=== PATIENT | female | born 1995 | race Caucasian/White ===

== ENCOUNTER 2020-05-27 19:36 | Emergency (ER) | payer SELFPAY ==
[2020-05-27 20:49] LABS: Urine Blood NEGATIVE (NEG); Urine Glucose NEGATIVE (NEG); Urine Protein NEGATIVE (NEG); Urine Specific Gravity 1.025 (1.005-1.030)
--- NOTE | 2020-05-27 20:53 | ER ---
Nurse's Notes [facility] Name: Becky Landrum Age: 25 yrs Sex: Female : 1995 Arrival Date: 05/27/2020 Time: 19:40 Bed 12 Private MD: Diagnosis: Low back pain Presentation: 05/27 19:58 Chief complaint: Patient states: Pt reports she has been having low back pain for the ea past week. Pt reports she took a test and it was positive. Pt reports she may be 4 month . Reports her last period was May 08 but it was very light. Coronavirus screen: Proceed with normal triage. Patient was placed back in the lobby due to no available rooms at this time. Patient was instructed to always wear their mask and to isolate themselves as much as possible from others in the lobby. Ebola Screen: No symptoms or risks identified at this time. Initial Sepsis Screen: Does the patient meet any 2 criteria? No. Patient's initial sepsis screen is negative. Does the patient have a suspected source of infection? No. Patient's initial sepsis screen is negative. Risk Assessment: Do you want to hurt yourself or someone else? Patient reports no desire to harm self or others. Onset of symptoms was May 27, 2020. 19:58 Method Of Arrival: Ambulatory ea 19:58 Acuity: KYE 4 ea Triage Assessment: 20:02 General: Appears in no apparent distress. Behavior is appropriate for age. Pain: ea Complains of pain in low back area. 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 - Social history:: Smoking status: Reported history of juuling and/or vaping. Screenin:01 Abuse screen: Denies threats or abuse. Nutritional screening: No deficits noted. ea Tuberculosis screening: No symptoms or risk factors identified. Fall Risk None identified. Assessment: 20:40 General: Appears in no apparent distress. well groomed, well developed, well nourished, sg Behavior is calm, cooperative, appropriate for age. Pain: Complains of pain in low back area. Neuro: Level of Consciousness is awake, alert, obeys commands, Oriented to person, place, time, situation. Cardiovascular: Patient's skin is warm and dry. Chest pain is denied. Respiratory: Airway is patent Respiratory effort is even, unlabored. GI: Abdomen is round non-distended, Reports normal bowel habits, tolerance of fluids, tolerance of food. : No signs and/or symptoms were reported regarding the genitourinary system. EENT: No signs and/or symptoms were reported regarding the EENT system. Derm: Skin is pink, warm \T\ dry. Musculoskeletal: Circulation, motion, and sensation intact. Range of motion: intact in all extremities. Vital Signs: 19:58 BP 135 / 82; Pulse 98; Resp 18; Temp 98.5; Pulse Ox 98% on R/A; Weight 82.55 kg; Height ea 5 ft. 2 in. (157.48 cm); 21:00 BP 116 / 66; Pulse 77; Resp 18 S; Temp 98.5; Pulse Ox 100% on R/A; sg 19:58 Body Mass Index 33.29 (82.55 kg, 157.48 cm) ea ED Course: 19:40 Patient arrived in ED. es 20:00 Triage completed. ea 20:00 Arm band placed on. sg 20:02 Vidhya [place] FNP-C is [facility]. snw 20:02 Sohan Doshi MD is Attending Physician. snw 20:18 Patient has correct armband on for positive identification. Bed in low position. Call sg light in reach. Pulse ox on. NIBP on. 20:50 No provider procedures requiring assistance completed. Patient did not have IV access sg during this emergency room visit. Administered Medications: No medications were administered Outcome: 20:53 Discharge ordered by . snw 21:03 Discharged to home ambulatory. sg 21:03 Condition: good 21:03 Discharge instructions given to patient, Instructed on discharge instructions, follow up and referral plans. safety practices, Demonstrated understanding of instructions, follow-up care. 21:18 Patient left the ED. ea Signatures: Zay Kay RN RN Vidhya Koo FNP-C FNP-Csnw Carmen Jimenez Elena, RN RN ea
--- NOTE | 2020-05-27 20:53 | EDPHYS ---
Physician Documentation [facility] Name: Becky Landrum Age: 25 yrs Sex: Female : 1995 Arrival Date: 05/27/2020 Time: 19:40 Bed 12 Private MD: ED Physician Sohan Doshi HPI: 05/27 20:54 This 25 yrs old Female presents to ER via Ambulatory with complaints of Low snw Back Pain. 20:54 The patient presents with pain that is acute, with no known mechanism of injury. The snw symptoms are located in the low back. The pain does not radiate. The problem was sustained pt states + test on Saturday. UPT in ED negative. Onset: The symptoms/episode began/occurred gradually. Associated signs and symptoms: The patient has no apparent associated signs or symptoms. Severity of symptoms: At their worst the symptoms were mild. It is unknown whether or not the patient has had similar symptoms in the past. It is unknown whether or not the patient has recently seen a physician. 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 - Social history:: Smoking status: Reported history of juuling and/or vaping. ROS: 20:54 Constitutional: Negative for fever, chills, and weight loss, Eyes: Negative for injury, snw pain, redness, and discharge, ENT: Negative for injury, pain, and discharge, Neck: Negative for injury, pain, and swelling, Cardiovascular: Negative for chest pain, palpitations, and edema, Respiratory: Negative for shortness of breath, cough, wheezing, and pleuritic chest pain, Abdomen/GI: Negative for abdominal pain, nausea, vomiting, diarrhea, and constipation, : Negative for injury, bleeding, discharge, and swelling, MS/Extremity: Negative for injury and deformity, Skin: Negative for injury, rash, and discoloration, Neuro: Negative for headache, weakness, numbness, tingling, and seizure, Psych: Negative for depression, anxiety, suicide ideation, homicidal ideation, and hallucinations. 20:54 Back: Positive for pain at rest, of the low back area. Exam: 20:52 Constitutional: This is a well developed, well nourished patient who is awake, alert, snw and in no acute distress. Head/Face: Normocephalic, atraumatic. Eyes: Pupils equal round and reactive to light, extra-ocular motions intact. Lids and lashes normal. Conjunctiva and sclera are non-icteric and not injected. Cornea within normal limits. Periorbital areas with no swelling, redness, or edema. ENT: Nares patent. No nasal discharge, no septal abnormalities noted. Tympanic membranes are normal and external auditory canals are clear. Oropharynx with no redness, swelling, or masses, exudates, or evidence of obstruction, uvula midline. Mucous membranes moist. Neck: Trachea midline, no thyromegaly or masses palpated, and no cervical lymphadenopathy. Supple, full range of motion without nuchal rigidity, or vertebral point tenderness. No Meningismus. Chest/axilla: Normal chest wall appearance and motion. Nontender with no deformity. No lesions are appreciated. Cardiovascular: Regular rate and rhythm with a normal S1 and S2. No gallops, murmurs, or rubs. Normal PMI, no JVD. No pulse deficits. Respiratory: Lungs have equal breath sounds bilaterally, clear to auscultation and percussion. No rales, rhonchi or wheezes noted. No increased work of breathing, no retractions or nasal flaring. Abdomen/GI: Soft, non-tender, with normal bowel sounds. No distension or tympany. No guarding or rebound. No evidence of tenderness throughout. Skin: Warm, dry with normal turgor. Normal color with no rashes, no lesions, and no evidence of cellulitis. MS/ Extremity: Pulses equal, no cyanosis. Neurovascular intact. Full, normal range of motion. Neuro: Awake and alert, GCS 15, oriented to person, place, time, and situation. Cranial nerves II-XII grossly intact. Motor strength 5/5 in all extremities. Sensory grossly intact. Cerebellar exam normal. Normal gait. Psych: Awake, alert, with orientation to person, place and time. Behavior, mood, and affect are within normal limits. 20:52 Back: pain, that is moderate, of the low back area, normal spinal alignment noted, muscle spasm, is not present. Vital Signs: 19:58 BP 135 / 82; Pulse 98; Resp 18; Temp 98.5; Pulse Ox 98% on R/A; Weight 82.55 kg; Height ea 5 ft. 2 in. (157.48 cm); 21:00 BP 116 / 66; Pulse 77; Resp 18 S; Temp 98.5; Pulse Ox 100% on R/A; sg 19:58 Body Mass Index 33.29 (82.55 kg, 157.48 cm) ea MDM: 20:46 Patient medically screened. snw 20:53 Data reviewed: vital signs, nurses notes. Data interpreted: Pulse oximetry: on room air snw is 98 %. Interpretation: normal. Counseling: I had a detailed discussion with the patient and/or guardian regarding: the historical points, exam findings, and any diagnostic results supporting the discharge/admit diagnosis, lab results, the need for outpatient follow up, to return to the emergency department if symptoms worsen or persist or if there are any questions or concerns that arise at home. Special discussion: Based on the history and exam findings, there is no indication for further emergent testing or inpatient evaluation. I discussed with the patient/guardian the need to see the OB Gyne specialist for further evaluation of the symptoms. I discussed with the patient/guardian the need to see the primary care provider for further evaluation of the symptoms. 05/27 19:57 Order name: Urine Microscopic Only snw 05/27 20:06 Order name: Urine Microscopic Only EDMS 05/27 19:57 Order name: Urine Test (obtain specimen); Complete Time: 20:20 snw 05/27 19:57 Order name: Urine Dipstick-Ancillary (obtain specimen); Complete Time: 20:20 snw 05/27 20:20 Order name: Urine Dipstick--Ancillary (enter results); Complete Time: 20:50 ar5 05/27 20:20 Order name: Urine --Ancillary (enter results); Complete Time: 20:50 ar5 Administered Medications: No medications were administered Disposition: 05/28 02:12 Co-signature as Attending Physician, Sohan Doshi MD. [email or web address] Disposition: 05/27/20 20:53 Discharged to Home. Impression: Low back pain. - Condition is Stable. - Medication Reconciliation Form, Thank You Letter, Antibiotic Education, Prescription Opioid Use form. - Follow up: Emergency Department; When: As needed; Reason: Worsening of condition. Follow up: Private Physician; When: 2 - 3 days; Reason: Recheck today's complaints, Continuance of care, Re-evaluation by your physician. Signatures: Dispatcher [employer] EDVidhya Diaz FNP-C BLIND HOOKER-Csnw Ama Grimes RN RN Sohan Crews MD MD [email or web address] Corrections: (The following items were deleted from the chart) 05/27 21:18 20:53 05/27/2020 20:53 Discharged to Home. Impression: Low back pain. Condition is ea Stable. Forms are Medication Reconciliation Form, Thank You Letter, Antibiotic Education, Prescription Opioid Use. Follow up: Emergency Department; When: As needed; Reason: Worsening of condition. Follow up: Private Physician; When: 2 - 3 days; Reason: Recheck today's complaints, Continuance of care, Re-evaluation by your physician. snw
[2020-05-27 21:22] VITALS: BP 135/82; TEMP 98.5; O2SAT 98
[2020-05-27 21:30] LABS: Urine Amorphous Sediment 4+ /HPF (NONE SEEN); Urine Bacteria <20 /HPF (<20); Urine Culture Reflex Order NOT NEEDED; Urine RBC <5 /HPF (NONE SEEN)
== END 2020-05-27 21:18 | disposition home or self-care (01) ==
LOC: ER 19:36
DX: M54.5 Low back pain (principal); F99 Mental disorder, not otherwise specified; Z72.0 Tobacco use; Z88.1 Allergy status to other antibiotic agents; Z88.2 Allergy status to sulfonamides; Z88.5 Allergy status to narcotic agent
CPT/HCPCS: 81003; 81015; 81025; 99283

== ENCOUNTER 2021-03-15 10:18 | Emergency (ER) | payer OTHER, SELFPAY ==
--- OUTSIDE RECORDS SUMMARY | 2021-03-15 10:20 | XMS REPORT | Continuity of Care Document ---
:1995 Author Organization [facility] [place] t Address [address] [place] [address] Care Team Providers Name Role Phone Faisal Tierney DO Attending Clinician Karina PUENTE Attending Clinician Problems This patient has no known problems. Allergies, Adverse Reactions, Alerts This patient has no known allergies or adverse reactions. Medications This patient has no known medications. Procedures This patient has no known procedures. Encounters Start End Encounter Admission Attending Care Care Encounter Source Date/Time Date/Time Type Type Clinicians Facility Department ID 2021-02-14 2021-02-14 Outpatient [facility] [id number] [facility] 00:00[facility]00 [facility]00:00 [facility] 2021-02-08 2021-02-08 Outpatient [facility] [id number] [facility] 2021-01-25 2021-01-25 Outpatient [facility] [id number] [facility] 2021-01-24 2021-01-24 Patient FIDENCIO Tierney [id number] 00:00:00 00:00:00 Outreach [facility] [id number] [facility] [id number] [place] [id number] 2020-12-22 2020-12-22 Outpatient [facility] [id number] [facility] 2020-10-19 2020-10-19 Outpatient [facility] [id number] [facility] 2020-09-08 2020-09-08 Outpatient [facility] [id number] [facility] 2020-09-01 2020-09-01 Office FIDENCIO Collins [id number] 11:07:13 12:17:38 Visit Anjelica Hudson [id number] [place] [id number] Jaqueline [id number] [address] 2020-08-08 2020-08-08 Outpatient [facility] [id number] [facility] Results This patient has no known results.
[2021-03-15 11:36] LABS: Urine Blood 3+ (Negative); Urine Glucose Negative (Negative); Urine Protein 2+ (Negative); Urine Specific Gravity >=1.030 (1.005-1.030)
[2021-03-15 11:37] LABS: Absolute Lymphocytes (CBC) 2.1 K/uL (0.7-4.9); Basophils % 0.6 % (0-1.3); Hematocrit 36.1 % (36.0-45.0); Lymphocytes % 22.4 % (15.3-44.8); MPV 9.6 fL (7.6-11.3); RBC Red Blood Cell Count 4.32 M/uL (3.86-4.86)
[2021-03-15 11:47] LABS: Urine Specific Gravity/Preg >1.030 (1.005-1.030)
[2021-03-15] MEDS ORDERED: FENTANYL CITR 100 MCG/2 ML ONE (11:49)
[2021-03-15] MEDS ORDERED: ONDANSETRON 4 MG/2 ML VIAL ONE (11:50)
[2021-03-15 12:13] LABS: Calcium Oxalate Crystals- Ur PRESENT (NONE SEEN); Urine Bacteria >50 /HPF (<20); Urine Mucus MOD /HPF (NONE SEEN)
[2021-03-15 12:13] LABS: BUN Blood Urea Nitrogen 9 mg/dL (7-18); Bicarbonate 24 mmol/L (21-32); Glucose Level 139 mg/dL (74-106); HCG, Quantitative 5694 mIU/mL (1-3); Potassium 3.4 mmol/L (3.5-5.1); Sodium Level 138 mmol/L (136-145)
--- NOTE | 2021-03-15 13:13 | RAD REPORT ---
EXAM DESCRIPTION: US - Transvaginal OB - 03/15/2021 1:02 pm CLINICAL HISTORY: with abdominal pain COMPARISON: None. FINDINGS: The uterus 8 x 4 x 5 centimeters. A gestational sac is present within the endometrium denise suring 1.1 centimeter. A yolk sac is seen. A pole is not demonstrated. Ovaries are normal in size and echotexture.. The right and left adnexa unremarkable. No significant free fluid IMPRESSION: These findings may indicate a viable intrauterine in which the pole is n ot seen secondary to the early gestation. The estimated gestational age would be 5 weeks 6 days. It i s recommended that the patient have followup ultrasound in 1 week for re-evaluation
--- NOTE | 2021-03-15 13:32 | ER ---
Nurse's Notes [facility] Name: Becky Landrum Age: 25 yrs Sex: Female : 1995 Arrival Date: 03/15/2021 Time: 10:23 Bed 13 Private MD: Cyndi Gonzalez Diagnosis: Acute cystitis with hematuria;Intrauterine Presentation: 03/15 10:25 Chief complaint: LLQ pain upon waking today. She tried to make herself vomit and saw hb blood clots in her emesis. Home test positive yesterday. LMP . Coronavirus screen: At this time, the client does not indicate any symptoms associated with coronavirus-19. Ebola Screen: No symptoms or risks identified at this time. Initial Sepsis Screen: Does the patient meet any 2 criteria? No. Patient's initial sepsis screen is negative. Does the patient have a suspected source of infection? No. Patient's initial sepsis screen is negative. Risk Assessment: Do you want to hurt yourself or someone else? Patient reports no desire to harm self or others. Onset of symptoms was March 15, 2021. 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 - Social history:: Smoking status: Patient denies any tobacco usage or history of. Screenin:42 Abuse screen: Denies threats or abuse. Nutritional screening: No deficits noted. vg1 Tuberculosis screening: No symptoms or risk factors identified. Fall Risk No fall in past 12 months (0 pts). No secondary diagnosis (0 pts). IV access (20 points). Ambulatory Aid- None/Bed Rest/Nurse Assist (0 pts). Gait- Normal/Bed Rest/Wheelchair (0 pts) Mental Status- Oriented to own ability (0 pts). Total Villegas Fall Scale indicates No Risk (0-24 pts). Assessment: 11:30 General: Appears in no apparent distress. uncomfortable, Behavior is cooperative, vg1 crying. Pain: Complains of pain in left lower quadrant Pain currently is 9 out of 10 on a pain scale. Quality of pain is described as stabbing, Pain began 2 hours ago. Neuro: Level of Consciousness is awake, alert, obeys commands, Oriented to person, place, time, situation. Cardiovascular: Patient's skin is warm and dry. Respiratory: Airway is patent Respiratory effort is even, unlabored. GI: Bowel sounds present X 4 quads. Abdomen is tender to palpation in left lower quadrant. : No signs and/or symptoms were reported regarding the genitourinary system. EENT: Derm: Skin is intact, is healthy with good turgor. Musculoskeletal: Circulation, motion, and sensation intact. 12:14 Reassessment: pt transported to US. tr6 13:20 Reassessment: Patient appears in no apparent distress at this time. Patient and/or vg1 family updated on plan of care and expected duration. Pain level reassessed. Patient is alert, oriented x 3, equal unlabored respirations, skin warm/dry/pink. Patient denies pain at this time. Patient states feeling better. Vital Signs: 10:25 BP 117 / 70; Pulse 116; Resp 20; Temp 97.5; Pulse Ox 100% on R/A; Pain 10/10; hb 11:41 BP 125 / 78; Pulse 105; Resp 18; Pulse Ox 98% on R/A; vg1 13:20 BP 120 / 91; Pulse 89; Resp 16; Pulse Ox 100% on R/A; vg1 ED Course: 10:23 Patient arrived in ED. mr 10:23 Cyndi Gonzalez MD is Private Physician. mr 10:27 Triage completed. hb 10:28 Arm band placed on. hb 10:34 Geoff Arndt PA is PHCP. jr8 10:34 David Diaz MD is Attending Physician. jr8 11:27 Clarissa Oliver, ANN is Primary Nurse. tr6 11:27 Inserted saline lock: 20 gauge in right forearm, using aseptic technique. Blood tr6 collected. 11:42 Patient has correct armband on for positive identification. Bed in low position. Call vg1 light in reach. Adult w/ patient. 11:43 Primary Nurse role handed off by Clarissa Oliver, RN vg1 11:43 Bethany Lazo, RN is Primary Nurse. vg1 12:16 Patient taken to ultrasound. via wheelchair. vg1 13:02 US Transvaginal Ob In Process Unspecified. EDTX 13:29 Cyndi Gonzalez MD is Referral Physician. jr8 13:44 No provider procedures requiring assistance completed. IV discontinued, intact, em bleeding controlled, No redness/swelling at site. Pressure dressing applied. Administered Medications: 11:38 Drug: fentaNYL (PF) 50 mcg Route: IVP; Site: right forearm; tr6 13:19 Follow up: Response: No adverse reaction; Pain is decreased vg1 11:38 Drug: Zofran (Ondansetron) 4 mg Route: IVP; Site: right forearm; tr6 13:19 Follow up: Response: No adverse reaction vg1 13:29 Drug: Rocephin (cefTRIAXone) 1 grams Route: IV; Rate: calculated rate; Site: right vg1 wrist; 13:45 Follow up: Response: No adverse reaction; IV Status: Completed infusion; IV Intake: 10mlem Intake: 13:45 IV: 10ml; Total: 10ml. em Outcome: 13:31 Discharge ordered by MD. jr8 13:44 Discharged to home ambulatory, with family. em 13:44 Condition: stable 13:44 Discharge instructions given to patient, Instructed on discharge instructions, follow up and referral plans. medication usage, Demonstrated understanding of instructions, follow-up care, medications, Prescriptions given X 2. 13:45 Patient left the ED. em Signatures: Dispatcher [facility] Tori Alvarez Edgar, RN RN em Geoff Arndt PA PA jr8 Cydney Hurtado RN RN hb Garcia, Victoria, ANN JUAREZ vg1 Clarissa Oliver, ANN JUAREZ tr6
--- NOTE | 2021-03-15 13:33 | EDPHYS ---
Physician Documentation [facility] Name: Becky Landrum Age: 25 yrs Sex: Female : 1995 Arrival Date: 03/15/2021 Time: 10:23 Bed 13 Private MD: Cyndi Gonzalez ED Physician David Diaz HPI: 03/15 11:44 This 25 yrs old Female presents to ER via Ambulatory with complaints of jr8 Abdominal Pain. 11:44 The patient presents with abdominal pain in the left lower quadrant. Onset: The jr8 symptoms/episode began/occurred acutely, today. The symptoms do not radiate. Associated signs and symptoms: Pertinent positives: nausea. The symptoms are described as stabbing. Modifying factors: The symptoms are alleviated by nothing, the symptoms are aggravated by nothing. Severity of pain: At its worst the pain was moderate in the emergency department the pain is unchanged. The patient has not experienced similar symptoms in the past. The patient has not recently seen a physician. Patient stated that she has been cramping for the past few weeks. Stated that she took a test and was positive. Today pain increased substantially and now was having nausea. Could not vomit or have bowel movement. Pickett like she wanted to have bowel movement . 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 - Social history:: Smoking status: Patient denies any tobacco usage or history of. ROS: 11:44 Eyes: Negative for injury, pain, redness, and discharge, ENT: Negative for injury, jr8 pain, and discharge, Neck: Negative for injury, pain, and swelling, Cardiovascular: Negative for chest pain, palpitations, and edema, Respiratory: Negative for shortness of breath, cough, wheezing, and pleuritic chest pain, Back: Negative for injury and pain, MS/Extremity: Negative for injury and deformity, Skin: Negative for injury, rash, and discoloration, Neuro: Negative for headache, weakness, numbness, tingling, and seizure. 11:44 Abdomen/GI: Positive for abdominal pain, nausea. 11:44 : Positive for menstrual abnormality. Exam: 11:44 Cardiovascular: Regular rate and rhythm with a normal S1 and S2. No gallops, murmurs, jr8 or rubs. Normal PMI, no JVD. No pulse deficits. Respiratory: Lungs have equal breath sounds bilaterally, clear to auscultation and percussion. No rales, rhonchi or wheezes noted. No increased work of breathing, no retractions or nasal flaring. Back: No spinal tenderness. No costovertebral tenderness. Full range of motion. Skin: Warm, dry with normal turgor. Normal color with no rashes, no lesions, and no evidence of cellulitis. MS/ Extremity: Pulses equal, no cyanosis. Neurovascular intact. Full, normal range of motion. Neuro: Awake and alert, GCS 15, oriented to person, place, time, and situation. Cranial nerves II-XII grossly intact. Motor strength 5/5 in all extremities. Sensory grossly intact. 11:44 Constitutional: The patient appears alert, awake, uncomfortable. 11:44 Abdomen/GI: Inspection: obese Bowel sounds: active, all quadrants, Palpation: soft, in all quadrants, moderate abdominal tenderness, in the left lower quadrant, mass, is not appreciated, rebound tenderness, is not appreciated, voluntary guarding, is not appreciated, involuntary guarding, is not appreciated, no appreciated organomegaly, Indicators: McBurney's point is not tender, Frazier's sign Rovsing's sign is negative, Liver: tenderness, is not appreciated. Vital Signs: 10:25 BP 117 / 70; Pulse 116; Resp 20; Temp 97.5; Pulse Ox 100% on R/A; Pain 10/10; hb 11:41 BP 125 / 78; Pulse 105; Resp 18; Pulse Ox 98% on R/A; vg1 13:20 BP 120 / 91; Pulse 89; Resp 16; Pulse Ox 100% on R/A; vg1 MDM: 10:34 Patient medically screened. jr8 13:20 Data reviewed: vital signs, nurses notes, lab test result(s), radiologic studies, jr8 ultrasound. Data interpreted: Pulse oximetry: on room air is 100 %. Interpretation: normal. Counseling: I had a detailed discussion with the patient and/or guardian regarding: the historical points, exam findings, and any diagnostic results supporting the discharge/admit diagnosis, lab results, radiology results, the need for outpatient follow up, a family practitioner, an OB/Gyne specialist, to return to the emergency department if symptoms worsen or persist or if there are any questions or concerns that arise at home. ED course: Patient with some blood in urine and bacteria. Stone vs UTI present. US showed probable viable . Discussed with patient that it is too early to assess stability of . Could still be early miscarriage. Patient could be multifactorial at this point based on above assessment and statements. Will put on Abx and have her push fluids. Patient is feeling much better and able to urinate a lot more. Discussed with her that we will treat conservatively with the for now but if needed would further assess with US or CT of the Renal pelvic system. To watch for increased pain, fever, anuria, or vaginal bleeding. Patient good with this and will f/u in one week for another US. If worse would come back . 03/15 10:43 Order name: Quantitative Hcg; Complete Time: 12:18 8 03/15 10:43 Order name: Abo/rh Typing; Complete Time: 12:08 [facility] 03/15 10:43 Order name: Basic Metabolic Panel; Complete Time: 12:18 8 03/15 10:43 Order name: CBC with Diff; Complete Time: 11:54 8 03/15 11:35 Order name: Urine Dipstick-Ancillary; Complete Time: 11:44 EDMS 03/15 11:42 Order name: Urine --Ancillary (enter results); Complete Time: 11:54 bd 03/15 10:43 Order name: Urine Test (obtain specimen); Complete Time: 11:39 8 03/15 10:43 Order name: IV Saline Lock; Complete Time: 11:28 8 03/15 11:44 Order name: Urine Microscopic Only; Complete Time: 12:18 8 03/15 12:08 Order name: US Transvaginal Ob; Complete Time: 13:14 [facility] 03/15 12:18 Order name: ABO/RH no charge; Complete Time: 12:18 EDMD 03/15 10:43 Order name: Labs collected and sent; Complete Time: 11:28 8 /12 10:43 Order name: NPO; Complete Time: :03/15 10:43 Order name: Urine Dipstick-Ancillary (obtain specimen); Complete Time: 40 Administered Medications: 11:38 Drug: fentaNYL (PF) 50 mcg Route: IVP; Site: right forearm; tr6 13:19 Follow up: Response: No adverse reaction; Pain is decreased vg1 11:38 Drug: Zofran (Ondansetron) 4 mg Route: IVP; Site: right forearm; tr6 13:19 Follow up: Response: No adverse reaction vg1 13:29 Drug: Rocephin (cefTRIAXone) 1 grams Route: IV; Rate: calculated rate; Site: right vg1 wrist; 13:45 Follow up: Response: No adverse reaction; IV Status: Completed infusion; IV Intake: 10mlem Disposition: 03/16 09:19 Co-signature as Attending Physician, David Diaz MD I agree with the assessment and billie plan of care. Disposition: 03/15/21 13:31 Discharged to Home. Impression: Acute cystitis with hematuria, Intrauterine . - Condition is Stable. - Discharge Instructions: Urinary Tract Infection, Adult. - Prescriptions for Macrobid 100 mg Oral Capsule - take 1 capsule by ORAL route every 12 hours for 7 days; 14 capsule. promethazine 25 mg Oral Tablet - take 1 tablet by ORAL route every 6 hours As needed; 20 tablet. - Medication Reconciliation Form, Thank You Letter, Antibiotic Education, Prescription Opioid Use form. - Follow up: Cyndi Gonzalez MD; When: 1 week; Reason: Recheck today's complaints, Continuance of care, Re-evaluation by your physician. - Problem is new. - Symptoms have improved. Signatures: Dispatcher [employer] David Walker MD MD cha Munoz, Edgar, RN RN em Geoff Arndt PA PA jr8 Cydney Hurtado RN RN hb Garcia, Victoria, RN RN vg1 Clarissa Oliver RN RN tr6 Corrections: (The following items were deleted from the chart) 03/15 13:45 13:31 03/15/2021 13:31 Discharged to Home. Impression: Acute cystitis with hematuria; em Intrauterine . Condition is Stable. Forms are Medication Reconciliation Form, Thank You Letter, Antibiotic Education, Prescription Opioid Use. Follow up: Cyndi Gonzalez; When: 1 week; Reason: Recheck today's complaints, Continuance of care, Re-evaluation by your physician. Problem is new. Symptoms have improved. jr8
[2021-03-15] MEDS ORDERED: CEFTRIAXONE/SWI 1gm 1 GM/10 ML SYR ONE (13:45)
[2021-03-15 13:53] VITALS: TEMP 97.5
[2021-03-15 13:56] VITALS: BP 120/91; O2SAT 100
== END 2021-03-15 13:45 | disposition home or self-care (01) ==
LOC: ER 10:18
DX: O23.11 Infections of bladder in pregnancy, first trimester (principal); Z3A.01 Less than 8 weeks gestation of pregnancy; Z88.1 Allergy status to other antibiotic agents; Z88.2 Allergy status to sulfonamides; Z88.5 Allergy status to narcotic agent
CPT/HCPCS: 96365; 85025; 80048; 36415; 86900; 81025; 86901; 84702; 76817; 96375; 99284; J3010; J0696; J2405; 81003; 81015

== ENCOUNTER 2021-03-18 13:02 | Emergency (ER) | payer OTHER ==
--- OUTSIDE RECORDS SUMMARY | 2021-03-18 13:06 | XMS REPORT | Continuity of Care Document ---
:1995 Author Organization [facility] t Address [address] [place] [address] Care Team Providers Name Role Phone Faisal [...] Clinicians Facility Department ID 2021-02-14 2021-02-14 Outpatient [facility] [id number] [facility] [address] 00:00:00 00:00:00 [facility] 2021-02-08 2021-02-08 Outpatient [facility] [id number] [facility] 2021-01-25 2021-01-25 Outpatient [facility] [id number] [facility] 2021-01-24 2021-01-24 Patient FIDENCIO Tierney [id number] 00:00:00 00:00:00 Outreach [facility] [id number] [facility] [id number] EAMON [id number] 2020-12-22 2020-12-22 Outpatient [facility] [id number] [facility] 2020-10-19 2020-10-19 Outpatient [facility] [id number] [facility] 2020-09-08 2020-09-08 Outpatient [facility] [id number] [facility] 2020-09-01 2020-09-01 Office FIDENCIO Collins [id number] 11:07:13 12:17:38 Visit Anjelica Hudson [id number] [place] [id number] Jaqueline [id number] [address] 2020-08-08 2020-08-08 Outpatient [facility] [id number] [facility] Results This patient has no known results.
[2021-03-18 13:37] LABS: Urine Blood 2+ (Negative); Urine Glucose Negative (Negative); Urine Protein 2+ (Negative); Urine Specific Gravity >=1.030 (1.005-1.030); Urine pH 6.5 (5.0-7.0)
[2021-03-18 14:20] LABS: Absolute Lymphocytes (CBC) 1.8 K/uL (0.7-4.9); Basophils % 0.8 % (0-1.3); Hematocrit 36.6 % (36.0-45.0); Lymphocytes % 14.5 % (15.3-44.8); MPV 9.8 fL (7.6-11.3); RBC Red Blood Cell Count 4.46 M/uL (3.86-4.86)
[2021-03-18] MEDS ORDERED: PROMETHAZINE INJ 25 MG/ML AMP ONE (14:31)
[2021-03-18] MEDS ORDERED: MORPHINE 2 MG/ML SYR ONE ×2 (14:32→16:05)
[2021-03-18] MEDS ORDERED: NA CHLORIDE 0.9% 1,000 ML ONE (14:32)
[2021-03-18 15:04] LABS: ALT/SGPT 53 U/L (12-78); AST/SGOT 31 U/L (15-37); Albumin 4.1 g/dL (3.4-5.0); Alkaline Phosphatase 85 U/L (45-117); BUN Blood Urea Nitrogen 9 mg/dL (7-18); Bicarbonate 24 mmol/L (21-32); Bilirubin Direct 0.1 mg/dL (0-0.2); Bilirubin Total 0.3 mg/dL (0.2-1.0); Glucose Level 135 mg/dL (74-106); Potassium 3.7 mmol/L (3.5-5.1); Protein, Total 8.4 g/dL (6.4-8.2); Sodium Level 139 mmol/L (136-145)
[2021-03-18 15:05] LABS: HCG, Quantitative 10404 mIU/mL (1-3); Lipase 128 U/L (73-393)
[2021-03-18 15:25] LABS: Urine Specific Gravity/Preg >1.030 (1.005-1.030)
--- NOTE | 2021-03-18 15:27 | RAD REPORT ---
EXAM DESCRIPTION: US - Renal Ultrasound-Complete - 03/18/2021 2:54 pm CLINICAL HISTORY: Flank pain COMPARISON: None FINDINGS: The right kidney measures 13 cm with a normal echotexture. The left kidney measures 12 cm with a normal echotexture. An extrarenal pelvis is present. There is b orderline pyelocaliectasis Hydronephrosis is not seen. No gross abnormality of bladder IMPRESSION: Left extrarenal pelvis. Borderline mild pyelocaliectasis
[2021-03-18 15:29] LABS: Urine Amorphous Sediment 2+ /HPF (NONE SEEN); Urine Bacteria 20-50 /HPF (<20); Urine Mucus 2+ /HPF (NONE SEEN)
[2021-03-18] MEDS ORDERED: ONDANSETRON 4 MG/2 ML VIAL ONE (15:39)
--- NOTE | 2021-03-18 16:04 | EDPHYS ---
Physician Documentation [facility] Name: Becky Landrum Age: 25 yrs Sex: Female : 1995 Arrival Date: 03/18/2021 Time: 13:03 Bed 19 Private MD: Cyndi Gonzalez ED Physician David Diaz HPI: 03/18 14:00 This 25 yrs old Female presents to ER via Ambulatory with complaints of Flank cp Pain. 14:00 The patient complains of pain in the left low back. The pain does not radiate. cp 14:00 Onset: The symptoms/episode began/occurred 3 day(s) ago. cp 14:00 The patient presents to the emergency department with nausea, with "dry heaves", cp vomiting, that is continuous. Possible causes: , UTI. Associated signs and symptoms: Pertinent negatives: diarrhea, fever. 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 - Social history:: Smoking status: Patient reports the use of cigarette tobacco products, smokes one-half pack cigarettes per day. ROS: 14:02 Constitutional: Negative for body aches, chills, fever. cp 14:02 Abdomen/GI: Positive for nausea and vomiting. 14:02 Back: Positive for flank pain, on the left. 14:02 : Negative for vaginal bleeding. 14:02 Eyes: Negative for injury, pain, redness, and discharge. cp 14:02 ENT: Negative for ear pain, sore throat, difficulty swallowing, difficulty handling secretions. 14:02 Cardiovascular: Negative for chest pain. 14:02 Respiratory: Negative for cough, shortness of breath, wheezing. 14:02 Neuro: Negative for altered mental status, headache, weakness. 14:02 All other systems are negative. Exam: 14:05 Constitutional: The patient appears in no acute distress, alert, awake, non-toxic, well cp developed, well nourished, obese, uncomfortable. 14:05 Head/Face: Normocephalic, atraumatic. cp 14:05 Eyes: Periorbital structures: appear normal, Conjunctiva: normal, no exudate, no injection, Sclera: no appreciated abnormality, Lids and lashes: appear normal, bilaterally. 14:05 ENT: External ear(s): are unremarkable, Nose: is normal, Mouth: Lips: moist, Oral mucosa: moist, Posterior pharynx: Airway: no evidence of obstruction, patent. 14:05 Chest/axilla: Inspection: normal, Palpation: is normal, no crepitus, no tenderness. 14:05 Cardiovascular: Rate: tachycardic, Rhythm: regular. 14:05 Respiratory: the patient does not display signs of respiratory distress, Respirations: normal, no use of accessory muscles, no retractions, labored breathing, is not present, Breath sounds: are clear throughout, no decreased breath sounds. 14:05 Abdomen/GI: Inspection: abdomen appears normal, Bowel sounds: active, all quadrants, Palpation: abdomen is soft and non-tender, in all quadrants. 14:05 Back: pain, that is moderate, of the left low back, ROM is painful. Vital Signs: 13:14 Pulse 108; Resp 20; Temp 97.0; Pulse Ox 99% on R/A; Weight 98.43 kg (R); Height 5 ft. 1 aa5 in. (154.94 cm) (R); Pain 10/10; 13:18 BP 135 / 92; aa5 14:43 Pulse 105; Resp 16; Pulse Ox 100% on R/A; zb 15:52 BP 135 / 102; Pulse 107; Resp 18; Pulse Ox 97% on R/A; zb 13:14 Body Mass Index 41.00 (98.43 kg, 154.94 cm) aa5 MDM: 13:41 Patient medically screened. billie 14:00 Differential diagnosis: pyelonephritis, UTI, gastritis, cholecystitis, pancreatitis. cp 16:02 Data reviewed: vital signs, nurses notes, lab test result(s), radiologic studies, cp ultrasound. Response to treatment: the patient's symptoms have markedly improved after treatment, VSS. Pain and nausea markedly improved. Vomiting resolved, and as a result, I will discharge patient. 03/18 13:38 Order name: Urine Dipstick-Ancillary; Complete Time: 13:47 EDMS 03/18 14:51 Interpretation: Normal except: UKET Trace; UBLD 2+; UPROT 2+; UESTR Trace. 03/18 13:51 Order name: Basic Metabolic Panel 03/18 13:51 Order name: CBC with Diff 03/18 13:51 Order name: Hepatic Function 03/18 13:51 Order name: Lipase; Complete Time: 15:31 03/18 13:51 Order name: Urine Microscopic Only; Complete Time: 15:31 03/18 15:32 Interpretation: Normal except: URBC 5-10; UBACT 20-50; SQEPI 5-10. 03/18 13:51 Order name: US Rp Exam Complete; Complete Time: 15:31 03/18 15:37 Interpretation: Report reviewed. 03/18 13:51 Order name: Quantitative Hcg; Complete Time: 15:31 03/18 13:52 Order name: Basic Metabolic Panel; Complete Time: 15:31 EDMS 03/18 15:32 Interpretation: Normal except: GLUC 135. 03/18 13:52 Order name: CBC with Automated Diff; Complete Time: 14:51 EDMS 03/18 14:51 Interpretation: Normal except: WBC 12.20; NIKO% 77.1; LYM% 14.5; NEUT A 9.4. 03/18 13:52 Order name: Liver (Hepatic) Function; Complete Time: 15:31 EDMS 03/18 15:32 Interpretation: Normal except: TP 8.4; GLOB 4.3; A/G 1.0. 03/18 13:57 Order name: Urine --Ancillary (enter results); Complete Time: 15:31 em1 03/18 15:31 Order name: Urine Culture EDKY 03/18 13:51 Order name: IV Saline Lock; Complete Time: 14:11 cp 03/18 13:51 Order name: Labs collected and sent; Complete Time: 14:11 03/18 15:34 Order name: PO challenge; Complete Time: 15:51 cp Administered Medications: 14:29 Drug: Phenergan (promethazine) 25 mg Route: IVP; Site: right antecubital; zb 14:55 Follow up: Response: No adverse reaction; Marked relief of symptoms; Nausea is decreasedzb 14:29 Drug: morphine 2 mg {Note: RASS +0.} Route: IVP; Site: right antecubital; zb 14:50 Follow up: Response: No adverse reaction; Pain is decreased; RASS: Alert and Calm (0) zb 14:29 Drug: NS 0.9% 1000 ml Route: IV; Rate: 1 bolus; Site: right antecubital; zb 16:00 Follow up: Response: No adverse reaction; IV Status: Completed infusion; IV Intake: zb 1000ml 15:22 Drug: Zofran (Ondansetron) 4 mg Route: IVP; Site: right antecubital; zb 15:51 Follow up: Response: No adverse reaction; Marked relief of symptoms; Nausea is decreasedzb 15:51 Drug: Macrobid (nitrofurantoin) 100 mg Route: PO; zb 16:00 Follow up: Response: Medication administered at discharge. zb 15:54 Drug: morphine 2 mg {Note: RASS +0.} Route: IVP; Site: right antecubital; zb 16:00 Follow up: Response: No adverse reaction; Pain is decreased; RASS: Alert and Calm (0) zb Disposition: 03/19 06:58 Co-signature as Attending Physician, David Diaz MD I agree with the assessment and billie plan of care. Disposition: 03/18/21 16:03 Discharged to Home. Impression: Nausea and vomiting, Low back pain, related conditions, unspecified, first trimester. - Condition is Stable. - Discharge Instructions: Abdominal Pain During , Hyperemesis Gravidarum, Back Pain in , First Trimester of , Pelvic Rest. - Prescriptions for Phenergan 25 mg Rectal Suppository - insert 1 suppository by RECTAL route every 6 hours As needed; 12 suppository. - Medication Reconciliation Form, Thank You Letter, Antibiotic Education, Prescription Opioid Use form. - Follow up: Private Physician; When: 2 - 3 days; Reason: Recheck today's complaints. - Problem is new. - Symptoms have improved. Signatures: Dispatcher [employer] David Walker MD MD cha Calderon, Audri, RN RN aa5 David Buckner PA PA cp Brown, Zipporah RN RN zb Corrections: (The following items were deleted from the chart) 03/18 15:51 15:39 Urine Culture+[id number].LAB.BRZ ordered. EDMS EDMS 16:21 16:03 03/18/2021 16:03 Discharged to Home. Impression: Nausea and vomiting; Low back zb pain; related conditions, unspecified, first trimester. Condition is Stable. Forms are Medication Reconciliation Form, Thank You Letter, Antibiotic Education, Prescription Opioid Use. Follow up: Private Physician; When: 2 - 3 days; Reason: Recheck today's complaints. Problem is new. Symptoms have improved. cp
--- NOTE | 2021-03-18 16:04 | ER ---
Nurse's Notes [facility] Name: Becky Landrum Age: 25 yrs Sex: Female : 1995 Arrival Date: 03/18/2021 Time: 13:03 Bed 19 Private MD: Cyndi Gonzalez Diagnosis: Nausea and vomiting;Low back pain; related conditions, unspecified, first trimester Presentation: 03/18 13:14 Chief complaint: Patient states: "I came in 3 days ago for the same thing, I have pain aa5 in my left side its like a 10, but today I'm also throwing up" Patient states that she was diagnosed with a UTI 3 days ago, and was given an Rx which she has been taking, but the pain isn't getting any better. Denies fever. Coronavirus screen: Client denies travel out of the [place] in the last 14 days. At this time, the client does not indicate any symptoms associated with coronavirus-19. Ebola Screen: Patient denies travel to an Ebola-affected area in the 21 days before illness onset. Initial Sepsis Screen: Does the patient meet any 2 criteria? HR > 90 bpm. No. Patient's initial sepsis screen is negative. Does the patient have a suspected source of infection? No. Patient's initial sepsis screen is negative. Risk Assessment: Do you want to hurt yourself or someone else? Patient reports no desire to harm self or others. Onset of symptoms was March 2021. 13:14 Method Of Arrival: Ambulatory aa5 13:14 Acuity: KYE 3 aa5 Triage Assessment: 13:17 General: Appears in no apparent distress. comfortable, Behavior is calm, cooperative, aa5 appropriate for age. Pain: Pain currently is 10 out of 10 on a pain scale. Neuro: Level of Consciousness is awake, alert, obeys commands, Oriented to person, place, time, situation. Cardiovascular: Patient's skin is warm and dry. Respiratory: Airway is patent Respiratory effort is even, unlabored, Respiratory pattern is regular, symmetrical. 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 - Social history:: Smoking status: Patient reports the use of cigarette tobacco products, smokes one-half pack cigarettes per day. Screenin:42 Abuse screen: Denies threats or abuse. Denies injuries from another. Nutritional zb screening: No deficits noted. Tuberculosis screening: No symptoms or risk factors identified. Fall Risk None identified. Assessment: 14:00 General: Appears uncomfortable, Behavior is calm, cooperative, appropriate for age. zb Pain: Complains of pain in left femoral area and left inguinal area Pain currently is 10 out of 10 on a pain scale. Quality of pain is described as aching, crampy, pressure, sharp, Pain began suddenly, today. Neuro: Level of Consciousness is awake, alert, obeys commands, Oriented to person, place, time, situation. Cardiovascular: Capillary refill < 3 seconds Patient's skin is warm and dry. Respiratory: Airway is patent Respiratory effort is even, unlabored, Respiratory pattern is regular, symmetrical. GI: Abdomen is obese, Pt is actively vomiting undigested food, Bowel sounds present X 4 quads. Reports nausea. : Reports cramping, in left flank(s) pain in left in suprapubic area. EENT: Derm: Skin is intact, is healthy with good turgor, Skin is dry, Skin is normal, Skin temperature is warm. Musculoskeletal: Circulation, motion, and sensation intact. Range of motion: intact in all extremities. 15:15 Reassessment: Patient appears in no apparent distress at this time. Patient and/or zb family updated on plan of care and expected duration. Pain level reassessed. notified ECP of patient actively vomiting. medications ordered. 15:51 Reassessment: PO challenge completed, no nausea or vomiting noted at this time. patient zb given water and a cracker to drink. 16:20 Reassessment: Patient appears in no apparent distress at this time. Patient and/or zb family updated on plan of care and expected duration. Pain level reassessed. Patient is alert, oriented x 3, equal unlabored respirations, skin warm/dry/pink. gait even and steady. no issues. patient ambulated out. Vital Signs: 13:14 Pulse 108; Resp 20; Temp 97.0; Pulse Ox 99% on R/A; Weight 98.43 kg (R); Height 5 ft. 1 aa5 in. (154.94 cm) (R); Pain 10/10; 13:18 BP 135 / 92; aa5 14:43 Pulse 105; Resp 16; Pulse Ox 100% on R/A; zb 15:52 BP 135 / 102; Pulse 107; Resp 18; Pulse Ox 97% on R/A; zb 13:14 Body Mass Index 41.00 (98.43 kg, 154.94 cm) aa5 ED Course: 13:03 Patient arrived in ED. am2 13:03 Cyndi Gonzalez MD is Private Physician. am2 13:16 Triage completed. aa5 13:30 Patient has correct armband on for positive identification. Bed in low position. Call zb light in reach. Side rails up X 1. Pulse ox on. NIBP on. Door closed. Noise minimized. 13:30 Arm band placed on. zb 13:39 Ning Deal RN is Primary Nurse. zb 13:41 David Buckner PA is PHCP. cp 13:41 David Diaz MD is Attending Physician. cp 14:11 Inserted saline lock: 20 gauge in right hand, using aseptic technique. Blood collected. dh4 14:54 US Rp Exam Complete In Process Unspecified. EDMS 16:06 No provider procedures requiring assistance completed. IV discontinued, intact, zb bleeding controlled, No redness/swelling at site. Pressure dressing applied. Administered Medications: 14:29 Drug: Phenergan (promethazine) 25 mg Route: IVP; Site: right antecubital; zb 14:55 Follow up: Response: No adverse reaction; Marked relief of symptoms; Nausea is decreasedzb 14:29 Drug: morphine 2 mg {Note: RASS +0.} Route: IVP; Site: right antecubital; zb 14:50 Follow up: Response: No adverse reaction; Pain is decreased; RASS: Alert and Calm (0) zb 14:29 Drug: NS 0.9% 1000 ml Route: IV; Rate: 1 bolus; Site: right antecubital; zb 16:00 Follow up: Response: No adverse reaction; IV Status: Completed infusion; IV Intake: zb 1000ml 15:22 Drug: Zofran (Ondansetron) 4 mg Route: IVP; Site: right antecubital; zb 15:51 Follow up: Response: No adverse reaction; Marked relief of symptoms; Nausea is decreasedzb 15:51 Drug: Macrobid (nitrofurantoin) 100 mg Route: PO; zb 16:00 Follow up: Response: Medication administered at discharge. zb 15:54 Drug: morphine 2 mg {Note: RASS +0.} Route: IVP; Site: right antecubital; zb 16:00 Follow up: Response: No adverse reaction; Pain is decreased; RASS: Alert and Calm (0) zb Intake: 16:00 IV: 1000ml; Total: 1000ml. zb Outcome: 16:03 Discharge ordered by . chato 16:06 Discharged to home ambulatory. zb 16:06 Condition: stable 16:06 Discharge instructions given to patient, Instructed on discharge instructions, follow up and referral plans. medication usage, Demonstrated understanding of instructions, follow-up care, medications, Prescriptions given X 1. 16:21 Patient left the ED. zb Signatures: Dispatcher [employer] EDMS Eugenie Laughlin RN RN aa5 David Bukcner PA PA Lynette Rich amAlexander Canseco 4 Ning Deal RN RN zb Corrections: (The following items were deleted from the chart) 16:20 16:06 Discharge instructions given to patient, Instructed on discharge instructions, zb follow up and referral plans. Demonstrated understanding of instructions, follow-up care, zb
[2021-03-18] MEDS ORDERED: NITROFURAN MACRO 100 MG CAP PO ONE (16:06)
[2021-03-18 17:02] VITALS: TEMP 97
[2021-03-18 17:05] VITALS: BP 135/102; O2SAT 97
== END 2021-03-18 16:21 | disposition home or self-care (01) ==
LOC: ER 13:02
DX: O21.9 Vomiting of pregnancy, unspecified (principal); O99.331 Smoking (tobacco) complicating pregnancy, first trimester; F17.210 Nicotine dependence, cigarettes, uncomplicated; Z3A.00 Weeks of gestation of pregnancy not specified; Z88.1 Allergy status to other antibiotic agents; Z88.2 Allergy status to sulfonamides; Z88.5 Allergy status to narcotic agent
CPT/HCPCS: 96361; 87088; 85025; 87086; 80048; 36415; 81025; 80076; 84702; 83690; 76770; 96375; 96374; 99284; J2550; J2270 ×2; J7030; J2405; 81003; 81015

== ENCOUNTER → 2023-12-24 | Emergency (ER) | payer OTHER ==
[~2023-12-24] MED LIST: CEFTRIAXONE 1000 MG/VIAL ONE; KETOROLAC 30 MG/ML INJ ONE; MORPHINE 4 MG/ML SYR ONE; NA CHLORIDE 0.9% 1,000 ML ONE; NA CHLORIDE 0.9% 50 ML ONE; ONDANSETRON 4 MG/2 ML VIAL ONE
[2023-12-24 06:49] LABS: Urine Bacteria <20 /HPF (<20); Urine Bilirubin NEGATIVE (Negative); Urine Blood 3+ (OVER) (Negative); Urine Clarity Extremely Turbid (Clear); Urine Color Light-Yellow (Yellow); Urine Glucose NEGATIVE (Negative); Urine Mucus Slight /HPF (None Seen); Urine Protein TRACE (Negative); Urine RBC >50 /HPF (None Seen); Urine Urobilinogen Normal (Normal); Urine pH 5.5 (5.0-7.0)
[2023-12-24 07:06] LABS: Absolute Lymphocytes (CBC) 1.9 K/uL (0.7-4.9); Lymphocytes % 12.8 % (15.3-44.8); MCV 79.8 fL (80-100); MPV 8.2 fL (7.6-11.3); Platelets 384 thou/uL (152-406); RBC Red Blood Cell Count 4.89 M/uL (3.86-4.86)
[2023-12-24 07:26] LABS: Albumin 3.6 g/dL (3.4-5.0); Bilirubin Total 0.3 mg/dL (0.2-1.0); Protein, Total 8.1 g/dL (6.4-8.2)
--- NOTE | 2023-12-24 07:36 | RAD REPORT ---
EXAM DESCRIPTION: CT - Abdomen Pelvis Wo Contrast - 12/24/2023 7:13 am CLINICAL HISTORY: Abdominal pain. left flank pain COMPARISON: No comparisons TECHNIQUE: CT imaging of the abdomen and pelvis was performed without contrast. Solid organ, bowel a nd vascular assessment is limited due to lack of IV and oral contrast. All CT scans are performed using dose optimization technique as appropriate and may include automated exposure control or mA/KV adjustment according to patient size. FINDINGS: The lower lung izaguirre are clear. The liver, spleen, pancreas, adrenal glands are within normal limits for a limited non-contrast exami nation. Several caliceal stones right kidney. There is a 4 mm stone distal left ureter resulting in m ild left hydronephrosis. No bowel obstruction, free air, free fluid or abscess. The appendix is normal. The osseous structures are within normal limits. IMPRESSION: 4 mm stone distal left ureter resulting in mild left hydronephrosis. A limited non-contrast examination was performed as detailed.
--- NOTE | 2023-12-24 07:52 | EDPHYS ---
Physician Documentation [facility] Name: Becky Kulkarni Age: 28 yrs Sex: Female : 1995 Arrival Date: 12/24/2023 Time: 06:07 Bed 13 Private MD: ED Physician Gorge Payton HPI: 12/24 06:27 This 28 yrs old Female presents to ER via Unassigned with complaints of PT sp4 states she thinks she has a kidney infection. 06:50 28-year-old female presents to the emergency department with complaint of sudden onset sp4 of left flank pain starting at 3 AM. Patient reports similar prior pain with pyelonephritis. Denies fever reported several episodes of vomiting.. Historical: - Allergies: 06:42 Bactrim; pf1 06:42 Dilaudid; pf1 06:42 Sulfa (Sulfonamide Antibiotics); pf1 - PMHx: 06:42 PSYCH PROBLEMS; pf1 06:43 UTI; gestational diabetes; preeclampsia; pf1 - PSHx: 06:43 section; left foot; oral; pf1 - Immunization history:: Adult Immunizations up to date, Client reports having NOT received the Covid vaccine. Last tetanus immunization: < 5 years ago Flu vaccine is up to date. - Social history:: Smoking status: Reported history of juuling and/or vaping. Patient uses alcohol, but reports only rare drinking. Patient/guardian denies using street drugs. - Family history:: not pertinent. ROS: 06:52 Constitutional: Negative for fever, chills, and weight loss, positive left flank pain sp4 positive nausea and vomiting 06:52 All other systems are negative, Exam: 06:52 Constitutional: This is a well developed, well nourished patient who is awake, alert, sp4 and in no acute distress. Head/Face: Normocephalic, atraumatic. Eyes: Pupils equal round and reactive to light, extra-ocular motions intact. Lids and lashes normal. Conjunctiva and sclera are not injected. Cornea within normal limits. Periorbital areas with no swelling, redness, or edema. ENT: Nares patent. No nasal discharge, no septal abnormalities noted. Tympanic membranes are normal and external auditory canals are clear. Oropharynx with no redness, swelling, or masses, exudates, or evidence of obstruction, uvula midline. Mucous membranes moist. Neck: Trachea midline, no thyromegaly or masses palpated, and no cervical lymphadenopathy. Supple, full range of motion without nuchal rigidity, or vertebral point tenderness. Chest/axilla: Normal chest wall appearance and motion. Nontender with no deformity. No lesions are appreciated. Cardiovascular: Regular rate and rhythm with a normal S1 and S2. No gallops, murmurs, or rubs. Normal PMI, no JVD. No pulse deficits. Respiratory: Lungs have equal breath sounds bilaterally, clear to auscultation and percussion. No rales, rhonchi or wheezes noted. No increased work of breathing, no retractions or nasal flaring. Abdomen/GI: Soft, with normal bowel sounds. No distension or tympany. No guarding or rebound. No evidence of tenderness throughout. Back: No spinal tenderness. No costovertebral tenderness. Skin: Warm, dry with normal turgor. Normal color with no rashes, no lesions, and no evidence of cellulitis. MS/ Extremity: Pulses equal, no cyanosis. Neurovascular intact. Full, normal range of motion. Neuro: Awake and alert, GCS 15, oriented to person, place, time, and situation. Cranial nerves II-XII grossly intact. Motor strength 5/5 in all extremities. Sensory grossly intact. Psych: Awake, alert, with orientation to person, place and time. Behavior, mood, and affect are within normal limits Vital Signs: 06:21 BP 133 / 100; Pulse 85; Resp 16; Temp 97.9; Pulse Ox 99% on R/A; Weight 89.81 kg; pf1 Height 5 ft. 1 in. ; Pain 8/10; 07:00 BP 103 / 54; Pulse 89; Resp 18; Pulse Ox 98% on R/A; db 07:30 BP 118 / 87; Pulse 84; Resp 16; Pulse Ox 100% on R/A; db 06:21 Body Mass Index 37.41 (89.81 kg, 154.94 cm) pf1 06:21 Pain Scale: Adult pf1 MDM: 06:28 Patient medically screened. sp4 06:52 Differential Diagnosis altered mental status, sepsis, flu. Data reviewed: vital signs, sp4 nurses notes, lab test result(s), radiologic studies, CT scan. Consideration of Admission/Observation Escalation of care including admission/observation considered. Transition of care: After a detail discussion of the patient's case, care is transferred to Gorge Payton DO. 07:18 Transition of care: Care assumed from Alvarez Jaffe MD. ms3 12/24 06:28 Order name: CBC with Diff; Complete Time: 07:28 sp4 12/24 06:28 Order name: CMP; Complete Time: 07:28 sp4 12/24 06:28 Order name: Lipase; Complete Time: 07:28 sp4 12/24 06:28 Order name: Test, Urine; Complete Time: 06:52 sp4 12/24 06:28 Order name: Urinalysis w/ reflexes; Complete Time: 06:52 sp4 12/24 06:52 Order name: CT Abd/Pelvis - Without Contrast; Complete Time: 07:37 sp4 12/24 06:28 Order name: IV Saline Lock; Complete Time: 07:01 sp4 12/24 06:28 Order name: Labs collected and sent; Complete Time: 07:01 sp4 Administered Medications: 07:05 Drug: Rocephin - Rocephin (cefTRIAXone) IVPB 1 grams IVPB once over 30 mins; (mix in 50 jj7 mL NS) Route: IVPB; Infused Over: 30 mins; Site: right antecubital; 08:10 Follow up: Response: No adverse reaction; IV Status: Completed infusion; IV Intake: 50mldb 07:06 Drug: morphine IVP or IV 4 mg IVP once over 4 mins Route: IVP; Infused Over: 4 mins; jj7 Site: right antecubital; 08:10 Follow up: Response: No adverse reaction db 07:07 Drug: Ketorolac IVP 30 mg IVP once Route: IVP; Site: right antecubital; jj7 08:10 Follow up: Response: No adverse reaction db 07:08 Drug: NS 0.9% IV 1000 ml IV at 1 bolus Per protocol; 1000 mL bolus Route: IV; Rate: 1 jj7 bolus; Site: right antecubital; 08:10 Follow up: Response: No adverse reaction; IV Status: Completed infusion; IV Intake: db 1000ml 07:08 Drug: Ondansetron IVP 8 mg IVP once; over 2 minutes Route: IVP; Site: right antecubital;jj7 08:11 Follow up: Response: No adverse reaction db Disposition Summary: 12/24/23 07:51 Discharge Ordered Notes: Location: Home ms3 Condition: Stable ms3 Diagnosis - Kidney stone ms3 - Left flank pain ms3 Followup: ms3 - With: Peyman Bautista MD - When: 2 - 3 days - Reason: Recheck today's complaints Discharge Instructions: - Kidney Stones, [id number] ms3 - Discharge Summary Sheet db Forms: - Medication Reconciliation Form ms3 - Thank You Letter ms3 - Antibiotic Education ms3 - Prescription Opioid Use ms3 - Patient Portal Instructions ms3 - Leadership Thank You Letter ms3 - Work release form db - Family Work Release db Prescriptions: - acetaminophen-codeine 300-30 mg Oral tablet - take 1 tablet ORAL route every 6 hours as needed for pain; 12 tablet; Refills: ms3 0, Product Selection Permitted - tamsulosin 0.4 mg Oral capsule - take 1 capsule ORAL route every 24 hours; 15 capsule; Refills: 0, Product ms3 Selection Permitted Signatures: Dispatcher [employer] EDGorge Yuan DO DO ms3 Marion Garcia RN RN jj7 Sunita Finley RN RN pf1 Alvarez Jaffe MD MD sp4 Kaitlyn Robertson RN db Corrections: (The following items were deleted from the chart) 06:49 06:42 PSHx: oral (PSYCH PROBLEMS); pf1 pf1
--- NOTE | 2023-12-24 07:52 | ER ---
Nurse's Notes [facility] Name: Becky Kulkarni Age: 28 yrs Sex: Female : 1995 Arrival Date: 12/24/2023 Time: 06:07 Bed 13 Private MD: Diagnosis: Kidney stone;Left flank pain Presentation: 12/24 06:21 Chief complaint: Patient states: left flank pain and LLQ pain of 8 with burning pf1 sensation to bladder and urinary frequency, onset 0330 and vomiting x 3 episodes,onset 0430 this AM. 06:21 Coronavirus screen: Vaccine status: Patient reports being unvaccinated. Client denies pf1 travel out of the [place] in the last 14 days. At this time, the client does not indicate any symptoms associated with coronavirus-19. Ebola Screen: Patient negative for fever greater than or equal to 101.5 degrees Fahrenheit, and additional compatible Ebola Virus Disease symptoms. Initial Sepsis Screen: Does the patient meet any 2 criteria? No. Patient's initial sepsis screen is negative. Does the patient have a suspected source of infection? No. Patient's initial sepsis screen is negative. Risk Assessment: Do you want to hurt yourself or someone else? Patient reports no desire to harm self or others. 06:21 Method Of Arrival: Ambulatory pf1 06:21 Acuity: KYE 3 pf1 Historical: - Allergies: 06:42 Bactrim; pf1 06:42 Dilaudid; pf1 06:42 Sulfa (Sulfonamide Antibiotics); pf1 - PMHx: 06:42 PSYCH PROBLEMS; pf1 06:43 UTI; gestational diabetes; preeclampsia; pf1 - PSHx: 06:43 section; left foot; oral; pf1 - Immunization history:: Adult Immunizations up to date, Client reports having NOT received the Covid vaccine. Last tetanus immunization: < 5 years ago Flu vaccine is up to date. - Social history:: Smoking status: Reported history of juuling and/or vaping. Patient uses alcohol, but reports only rare drinking. Patient/guardian denies using street drugs. - Family history:: not pertinent. Screenin:30 [facility] ED Fall Risk Assessment (Adult) History of falling in the last 3 months, pf1 including since admission No falls in past 3 months (0 pts) Confusion or Disorientation No (0 pts) Intoxicated or Sedated No (0 pts) Impaired Gait No (0 pts) Mobility Assist Device Used No (0 pt) Altered Elimination No (0 pt) Score/Fall Risk Level 0 - 2 = Low Risk Oriented to surroundings, Maintained a safe environment, Educated pt \T\ family on fall prevention, incl call for assistance when getting out of bed, Assessed \T\ reinforced patient's understanding of fall precautions, Provided non-skid footwear, Hourly rounding (assess needs \T\ fall precautionary measures) done, Used ambulatory aids as needed (educated on \T\ assisted with), Used gait belt as appropriate. Abuse screen: Denies threats or abuse. Nutritional screening: No deficits noted. Tuberculosis screening: No symptoms or risk factors identified. Assessment: 06:25 General: Appears in no apparent distress. comfortable, well groomed, well developed, pf1 Behavior is calm, cooperative, appropriate for age, quiet. 06:25 Pain: Complains of pain in back and abdomen Pain currently is 8 out of 10 on a pain pf1 scale. Neuro: No deficits noted. Level of Consciousness is awake, alert, obeys commands, Oriented to person, place, time, situation. Cardiovascular: No deficits noted. Capillary refill < 3 seconds Patient's skin is warm and dry. Respiratory: No deficits noted. Airway is patent Respiratory effort is even, unlabored, Respiratory pattern is regular, symmetrical. GI: Abdomen is round non-distended, Reports lower abdominal pain, nausea, vomiting. : Reports urinary frequency, with burning sensation to bladder. EENT: No deficits noted. No signs and/or symptoms were reported regarding the EENT system. 07:05 Reassessment: Patient appears in no apparent distress at this time. Patient and/or db family updated on plan of care and expected duration. Pain level reassessed. Patient is alert, oriented x 3, equal unlabored respirations, skin warm/dry/pink. 08:09 Reassessment: Patient appears in no apparent distress at this time. Patient and/or db family updated on plan of care and expected duration. Pain level reassessed. Patient is alert, oriented x 3, equal unlabored respirations, skin warm/dry/pink. Patient states feeling better. Patient states symptoms have improved. Vital Signs: 06:21 BP 133 / 100; Pulse 85; Resp 16; Temp 97.9; Pulse Ox 99% on R/A; Weight 89.81 kg; pf1 Height 5 ft. 1 in. ; Pain 8/10; 07:00 BP 103 / 54; Pulse 89; Resp 18; Pulse Ox 98% on R/A; db 07:30 BP 118 / 87; Pulse 84; Resp 16; Pulse Ox 100% on R/A; db 06:21 Body Mass Index 37.41 (89.81 kg, 154.94 cm) pf1 06:21 Pain Scale: Adult pf1 ED Course: 06:17 Patient arrived in ED. jj6 06:25 Arm band placed on right wrist. pf1 06:27 Alvarez Jaffe MD is Attending Physician. sp4 06:34 Test, Urine Sent. vc1 06:34 Urinalysis w/ reflexes Sent. vc1 06:41 Triage completed. pf1 06:59 Missed attempt(s): 20 gauge in left antecubital area. Inserted saline lock: 22 gauge in ty right forearm, using aseptic technique. Blood collected. 07:01 CBC with Diff Sent. pf1 07:01 CMP Sent. pf1 07:01 Lipase Sent. pf1 07:10 Kaitlyn Robertson, RN is Primary Nurse. db 07:14 CT Abd/Pelvis - Without Contrast In Process Unspecified. EDMS 07:18 Attending Physician role handed off by Alvarez Jaffe MD ms3 07:18 Gorge Payton DO is Attending Physician. ms3 07:51 Peyman Bautista MD is Referral Physician. ms3 08:09 No provider procedures requiring assistance completed. IV discontinued, intact, db bleeding controlled, No redness/swelling at site. 08:09 Patient has correct armband on for positive identification. Call light in reach. Side db rails up X 1. Provided Education on: DISCHARGE. Pulse ox on. NIBP on. Warm blanket given. Administered Medications: 07:05 Drug: Rocephin - Rocephin (cefTRIAXone) IVPB 1 grams IVPB once over 30 mins; (mix in 50 jj7 mL NS) Route: IVPB; Infused Over: 30 mins; Site: right antecubital; 08:10 Follow up: Response: No adverse reaction; IV Status: Completed infusion; IV Intake: 50mldb 07:06 Drug: morphine IVP or IV 4 mg IVP once over 4 mins Route: IVP; Infused Over: 4 mins; jj7 Site: right antecubital; 08:10 Follow up: Response: No adverse reaction db 07:07 Drug: Ketorolac IVP 30 mg IVP once Route: IVP; Site: right antecubital; jj7 08:10 Follow up: Response: No adverse reaction db 07:08 Drug: NS 0.9% IV 1000 ml IV at 1 bolus Per protocol; 1000 mL bolus Route: IV; Rate: 1 jj7 bolus; Site: right antecubital; 08:10 Follow up: Response: No adverse reaction; IV Status: Completed infusion; IV Intake: db 1000ml 07:08 Drug: Ondansetron IVP 8 mg IVP once; over 2 minutes Route: IVP; Site: right antecubital;jj7 08:11 Follow up: Response: No adverse reaction db Medication: 08:09 VIS not applicable for this client. db Intake: 08:10 IV: 50ml; Total: 50ml. db 08:10 IV: 1000ml; Total: 1050ml. db Outcome: 07:51 Discharge ordered by . ms3 08:09 Discharged to home ambulatory, with family, db 08:09 Condition: stable 08:09 Discharge instructions given to patient, Instructed on discharge instructions, follow up and referral plans. Prescriptions given X 2, 08:11 Patient left the ED. db Signatures: Dispatcher [employer] EDMS Gorge Payton DO DO ms3 Shirley Bobby jj6 Mary Corona RN RN vc1 Marion Garcia RN RN jj7 Kaitlyn Robertson RN RN Sunita Spencer RN RN pf1 Alvarez Jaffe MD MD sp4 Valente Santamaria Corrections: (The following items were deleted from the chart) 06:42 06:21 BP 133 / 100; Pulse 85bpm; Resp 16bpm; Pulse Ox 99% RA; Temp 96.9F; 89.81 kg; pf1 Height 5 ft. 1 in.; BMI: 37.4; Pain 8/10, Adult; pf1 06:49 06:42 PSHx: oral (PSYCH PROBLEMS); pf1 pf1
[2023-12-24 08:29] VITALS: BP 118/87; TEMP 97.9; O2SAT 100
== END ==
LOC: ER 06:07
DX: N13.2 Hydronephrosis with renal and ureteral calculous obstruction (principal); Z28.310 Unvaccinated for COVID-19; Z88.1 Allergy status to other antibiotic agents; Z88.2 Allergy status to sulfonamides; Z88.5 Allergy status to narcotic agent
CPT/HCPCS: 36415; 74176; 80053; 81001; 81025; 83690; 85025; J0696; J2405; J7030